=== PATIENT | female | born 1940 | race Caucasian/White ===

== ENCOUNTER 2016-02-25 09:19 | Day surgery (SDC) | payer OTHER ==
[2016-02-25] MEDS ORDERED: DIAZEPAM 5 MG TAB PO ONE (09:24)
[2016-02-25] MEDS ORDERED: FAMOTIDINE 20 MG TAB PO ONE (09:24)
[2016-02-25] MEDS ORDERED: diphenhydrAMINE 25 MG CAP PO ONE ×2 (09:24→09:54)
[2016-02-25] MEDS ORDERED: NS 1,000 ML IV ONE (09:24)
[2016-02-25] MEDS ORDERED: ASPIRIN EC 325 MG TAB PO ONE ×2 (09:24→09:54)
--- NOTE | 2016-02-25 09:49 | CPEKG ---
Heart Rate: 50 RR Interval: 1200 P-R Interval: 144 QRSD Interval: 84 QT Interval: 456 QTC Interval: 416 P Providence: 61 QRS Providence: -15 T Wave Providence: 135 EKG Severity - ABNORMAL ECG - EKG Impression: SINUS RHYTHM EKG Impression: PROBABLE LVH WITH SECONDARY REPOL ABNRM Electronically Signed By: Nav Norwood 25-Feb-2016 15:47:40
[2016-02-25] MEDS ORDERED: DIAZEPAM 5 MG TAB ONE (09:54)
[2016-02-25] MEDS ORDERED: FAMOTIDINE 20 MG TAB ONE (09:54)
[2016-02-25 10:05] LABS: % IMMATURE GRANULYOCYTES 0.2 % (0.0-1.1); ABSOLUTE IMMATURE GRANULOCYTES 0.01 10^3/uL (0.00-0.10); ADD DIFF? NO; ADD MORPH? NO; ADD SCAN? NO; ATYPICAL LYMPHOCYTE FLAG 10 (0-99); FRAGMENT RBC FLAG 0 (0-99); HEMATOCRIT 37.8 % (38.0-47.0); HEMOGLOBIN 13.7 g/dL (12.6-16.3); LEFT SHIFT FLG 20 (0-99); LIPEMIA HEMOLYSIS FLAG 90 (0-99); MEAN CELL HEMOGLOBIN 31.2 pg (27.9-34.1); MEAN CELL HEMOGLOBIN CONCENTR. 36.2 g/dL (32.4-36.7); MEAN CELL VOLUME 86.1 fL (81.5-99.8); MEAN PLATELET VOLUME 8.8 fL (8.7-11.7); PLATELET CLUMPS FLAG 10 (0-99); PLATELET COUNT 284 10^3/uL (150-400); RED BLOOD CELL COUNT 4.39 10^6/uL (4.18-5.33); RED CELL DISTRIBUTION WIDTH 12.7 % (11.5-15.2)
[2016-02-25 10:17] LABS: INR 0.97 (0.83-1.16); PROTIME(PATIENT) 12.8 SEC (12.0-15.0)
[2016-02-25] MEDS ORDERED: fentaNYL 100 MCG/2 ML INJ ONE (10:34)
[2016-02-25] MEDS ORDERED: MIDAZOLAM 2 MG/2 ML VIAL ONE (10:34)
[2016-02-25] MEDS ORDERED: LIDOCAINE 1% 30 ML SDV ONE (10:34)
[2016-02-25] MEDS ORDERED: IOPAMIDOL (ISOVUE-370) 150 ML BTL IV ONE (10:35)
[2016-02-25 10:36] LABS: ANION GAP 13 mEq/L (8-16); CARBON DIOXIDE 24 mEq/l (22-31); CHLORIDE 106 mEq/L (97-110); CHOLESTEROL 263 mg/dL (140-220); CHOLESTEROL/HDL RATIO 4.38 RATIO (1.00-4.44); CREATININE 0.8 mg/dL (0.6-1.0); GLOMERULAR FILTRATION RATE > 60; GLUCOSE 108 mg/dL (70-100); HIGH DENSITY LIPOPROTEIN 60 mg/dL (40-85); LDL/HDL RATIO 2.92 RATIO (1.00-3.22); LOW DENSITY LIPOPROTEIN 175 mg/dL (80-100); MAGNESIUM 1.8 mg/dL (1.6-2.3); NON-HIGH DENSITY LIPOPROTEIN 203 mg/dL (90-129); POTASSIUM 4.1 mEq/L (3.5-5.2); SODIUM 143 mEq/L (134-144); TRIGLYCERIDE 142 mg/dL (35-135); VERY LOW DENSITY LIPOPROTEINS 28 mg/dL (8-25)
--- NOTE | 2016-02-25 12:30 | PDDXCAT ---
Diagnostic Cath Note - . Date: 02/25/16 Field Technical Support Consultant: Richard Indication: other (Aortic valve stenosis and CAD with a history of PCI of the LAD) - Procedure Access: right groin Procedure: left heart catheterization, coronary angiography, left ventriculogram , right heart catheterization - Materials Left Heart Cath size: 6F Right Heart Cath size: 7F (7 Fr sheath in RFV but used 6Fr JR4 for RHC due to Latex allergy; therefore, no PAOP recorded.) - Findings-Left Heart Catheterization LM: Distal 20 to 30%. LAD: Prior stent in mid-LAD patent; o/w diffuse mild to moderate irregularities. LCX: Ostial 50%; first OM 60% proximal. RCA: Proximal 50%; ostial PDA 80 to 90%. Ramus: Proximal 70%. EDP: 220/28 mmHg LVEF: 70% Wall motion: Normal. - Findings-Right Heart Catheterization RA: 12 mmHg RV: 56/14 mmHg PA: 50/12/30 mmHg O2 sat 71.4% PAOP: Not recorded. AO: 168/82/152 mmHg O2 sat 92.7% CO: 5.04 L/min; aortic valve mean gradient 28.4 mmHg; aortic valve area 1.16 sq cm CI: 3.15 L/min/sq mtr Complications: None Estimated blood loss: <50ml Closure method: Angioseal Assessment: 1) Normal LV systolic function. 2) Moderate to severe aortic stenosis. 3) Coronary artery disease as described above. 4) Mild to moderate pulmonary hypertension.
[2016-02-25] MEDS ORDERED: amLODIPine BESYLATE 5 MG TAB ONE (12:32)
[2016-02-25] MEDS ORDERED: amLODIPine BESYLATE 5 MG TAB PO ONE (13:00)
[2016-02-25] MEDS ORDERED: hydrALAZINE 20 MG/ML VIAL IVP ONE (14:30)
[2016-02-25] MEDS ORDERED: ATROPINE SULFATE 1 MG/10 ML SYR ONE (14:38)
== END 2016-02-25 18:31 | disposition home or self-care (01) ==
LOC: FCATH 09:19
PROVIDERS: ATTEND Internal Medicine Interventional Cardiology
PROC: B2151ZZ Fluoroscopy of Left Heart using Low Osmolar Contrast (ICD-10-PCS; principal; 2016-02-25)
PROC: 4A023N8 Measurement of Cardiac Sampling and Pressure, Bilateral, Percutaneous Approach (ICD-10-PCS; principal; 2016-02-25)
PROC: B2111ZZ Fluoroscopy of Multiple Coronary Arteries using Low Osmolar Contrast (ICD-10-PCS; principal; 2016-02-25)
DX: I35.0 Nonrheumatic aortic (valve) stenosis (principal); I25.10 Atherosclerotic heart disease of native coronary artery without angina pectoris; E78.5 Hyperlipidemia, unspecified; Z95.5 Presence of coronary angioplasty implant and graft
CPT/HCPCS: C1760; J0360; J0461; J1644; J2250; J3010; Q9967

== ENCOUNTER 2016-04-05 23:19 | Emergency (ER) | payer OTHER ==
[2016-04-05 23:33] VITALS: TEMP 97.9; O2SAT 94
[2016-04-06] MEDS ORDERED: ACETAMINOPHEN 325 MG TAB PO ONE (00:44)
[2016-04-06] MEDS ORDERED: NS 500 ML IV ONE (00:54)
[2016-04-06 01:09] LABS: % IMMATURE GRANULYOCYTES 0.2 % (0.0-1.1); ABSOLUTE IMMATURE GRANULOCYTES 0.01 10^3/uL (0.00-0.10); ADD DIFF? NO; ADD MORPH? NO; ADD SCAN? NO; ATYPICAL LYMPHOCYTE FLAG 0 (0-99); FRAGMENT RBC FLAG 0 (0-99); HEMOGLOBIN 12.8 g/dL (12.6-16.3); LEFT SHIFT FLG 0 (0-99); LIPEMIA HEMOLYSIS FLAG 90 (0-99); MEAN CELL HEMOGLOBIN 30.6 pg (27.9-34.1); MEAN CELL HEMOGLOBIN CONCENTR. 34.6 g/dL (32.4-36.7); MEAN CELL VOLUME 88.5 fL (81.5-99.8); MEAN PLATELET VOLUME 9.1 fL (8.7-11.7); PLATELET CLUMPS FLAG 0 (0-99); PLATELET COUNT 247 10^3/uL (150-400); RED BLOOD CELL COUNT 4.18 10^6/uL (4.18-5.33); RED CELL DISTRIBUTION WIDTH 12.9 % (11.5-15.2)
[2016-04-06 01:16] LABS: PROTIME(PATIENT) 13.1 SEC (12.0-15.0)
[2016-04-06 01:24] LABS: SEDIMENTATION RATE 11 MM/HR (0-30)
--- NOTE | 2016-04-06 01:31 | EDPHY ---
General - History Smoking Status: Former smoker Narrative: CHIEF COMPLAINT: headache HISTORY OF PRESENT ILLNESS: headache that started yesterday around 3:30 p.m. This was approximately 1 hour after taking supplements that she was prescribed by a Eastern medicine physician due to aortic stenosis. She has no chest pain of any kind at this time, but did have a diagnosis of aortic stenosis within the past month. She notes a sudden onset of a left-sided, parietal/temporal parietal pain. It is point tenderness. It is not diffuse. It has no exacerbating or alleviating factors. It has been constant since onset. No nausea or vomiting. No unilateral weakness. No confusion or slurred speech. No dizziness. No other associated complaints or particular modifying factors for this. The specific supplements are at bedside. No previous history of headache. No history of coagulopathy or use of blood thinners. REVIEW OF SYSTEMS: Ten systems reviewed and are negative unless otherwise noted in the HPI EXAMINATION General Appearance: Alert, no distress Head: normocephalic, atraumatic . No contusions or outward signs of trauma. No Saxena sign. No raccoon eyes. No depression or hematoma Eyes: Pupils equal and round, no conjunctival pallor or injection . EOMs intact. No subconjunctival hemorrhage or hyphema ENT, Mouth: Mucous membranes moist. Uvula midline. No erythema or edema. Neck: Normal inspection, supple, non-tender. Painless range of motion in all planes. No meningismus Respiratory: Lungs are clear to auscultation. No wheezing, rhonchi or crackles. Cardiovascular: Regular rate and rhythm . No murmur. Pulses intact distally with symmetric radial pulses 2+ symmetric DP pulses 2+. Gastrointestinal: Abdomen is soft and nontender Back: non-tender, no bony abnormalities Neurological: A&O X4. Cranial nerves 2-12 grossly intact. Strength is symmetric in all limbs of 5/5. No dysmetria. No pronator drift. NIH stroke scale is 0. Skin: Warm and dry, no rash Extremities: Nontender, no pedal edema Psychiatric: Mood and affect normal DIFFERENTIAL DIAGNOSES: Including but not limited to cephalgia, adverse drug reaction, intracranial hemorrhage, intraparenchymal hemorrhage, vascular headache, migraine MDM: 12:50 a.m. headache of nearly 18 hours duration. The pain is focal and localized to the left parietal/ temporal parietal region. There is no diffuse headache. There is no meningismus. No fever or chills. No signs or symptoms of stroke. CT scan has been ordered due to a severe headache. Laboratory studies are pending at this time. She is in no acute distress with a fully normal neuro examination 2:[address] Gordillo that the CT scan is within normal limits. specifically there are no acute findings including no evidence of subdural, subarachnoid or epidural hematoma. 2:05 a.m. I have re-evaluated the patient. She is feeling somewhat better after the Tylenol. I informed her of the CT scan findings. Also informed her of her laboratory studies thus far. Discussed with her a lumbar puncture to further evaluate her headache, specifically to rule out subdural hematoma. The patient was informed of the procedure and has declined. She says that she prefers not to do that. She is informed of the risks and benefits and comfortable with Assuming this risk. We will administer pain medication and monitor. 2:30 a.m. she is feeling significantly better at this time on re-evaluation. She remains awake and alert and neuro intact. Still does not want to do the lumbar puncture. She would like to be discharged home and is requesting pain medication should she need it. Will give her a small, a low dose of Shelbiana to go home with and instructions to return to the emergency department if her pain worsens, she has any vomiting, any unilateral weakness or stroke-like symptoms. recommend that she no longer takes supplements that she was taking when the headache started. Follow up with primary care physician otherwise. Patient is comfortable with this plan and wants to be discharged home SUPERVISION: Patient was evaluated in conjunction with the supervising physician. Please see their note for details. (Nikunj Albright) ED PA DICTATION I evaluated and participated in the management of the patient. I also evaluated the patient independently. My co-signature indicates that I have reviewed this chart and I agree with the findings and plan of care as documented. My personal H&P findings include: This is a 75-year-old female with hypertension who presents with headache, different from previous. She has a nonfocal neurologic exam. Labs are unremarkable. She is quite hypertensive initially. CT scan is unremarkable. She was offered an LP, however declined. She improved with pain medication here. She will be discharged home. (Beatris Montgomery) - Objective Vital Signs: Initial Vital Signs Temperature (C) 36.6 C 04/05/16 23:29 Heart Rate 57 L 04/05/16 23:29 Respiratory Rate 20 04/05/16 23:29 Blood Pressure 250/110 H 04/05/16 23:29 O2 Sat (%) 94 04/05/16 23:29 O2 Delivery Mode Room Air Allergies/Adverse Reactions: Cephalosporins Allergy (Verified 04/05/16 23:29) latex Allergy (Verified 04/05/16 23:29) Home Medications: Medication Instructions Recorded Chlorthalidone [Chlorthalidone 25 12.5 mg PO DAILY 02/25/16 mg (*)] Cholecalciferol Vit D3 [Vitamin D3 2,000 units PO DAILY 02/25/16 2000 units tab (OTC)] Compounded Biestrogen 1 each PO DAILY 02/25/16 Compounded Progesterone 150mg 1 each PO HS 02/25/16 Herbals/Supplements -Info Only 1 ea PO DAILY 02/25/16 Labetalol HCl [Trandate 100 mg (*)] 50 mg PO HS 02/25/16 Lisinopril [Zestril 20 mg (*)] 20 mg PO DAILY 02/25/16 Maynard-3 Fatty Acids [Fish Oil 1000 1,000 mg PO DAILY 02/25/16 mg (*)] Laboratory Results: Laboratory Results 04/06/16 01:01 04/06/16 01:01 04/06/16 04/06/16 04/06/16 01:01 01:01 01:01 WBC 6.63 10^3/uL 10^3/uL (3.80-9.50) RBC 4.18 10^6/uL 10^6/uL (4.18-5.33) Hgb 12.8 g/dL g/dL (12.6-16.3) Hct 37.0 % L % (38.0-47.0) MCV 88.5 fL fL (81.5-99.8) MCH 30.6 pg pg (27.9-34.1) MCHC 34.6 g/dL g/dL (32.4-36.7) RDW 12.9 % % (11.5-15.2) Plt Count 247 10^3/uL 10^3/uL (150-400) MPV 9.1 fL fL (8.7-11.7) Neut % (Auto) 55.0 % % (39.3-74.2) Lymph % (Auto) 32.4 % % (15.0-45.0) Garvin % (Auto) 11.6 % % (4.5-13.0) Eos % (Auto) 0.0 % L % (0.6-7.6) Baso % (Auto) 0.8 % % (0.3-1.7) Nucleat RBC Rel Count 0.0 % % (0.0-0.2) Absolute Neuts (auto) 3.65 10^3/uL 10^3/uL (1.70-6.50) Absolute Lymphs (auto) 2.15 10^3/uL 10^3/uL (1.00-3.00) Absolute Monos (auto) 0.77 10^3/uL 10^3/uL (0.30-0.80) Absolute Eos (auto) 0.00 10^3/uL L 10^3/uL (0.03-0.40) Absolute Basos (auto) 0.05 10^3/uL 10^3/uL (0.02-0.10) Absolute Nucleated RBC 0.00 10^3/uL 10^3/uL (0-0.01) Immature Gran % 0.2 % % (0.0-1.1) Immature Gran # 0.01 10^3/uL 10^3/uL (0.00-0.10) ESR 11 MM/HR MM/HR (0-30) PT 13.1 SEC SEC (12.0-15.0) INR 1.00 (0.83-1.16) Sodium 141 mEq/L mEq/L (134-144) Potassium 3.9 mEq/L mEq/L (3.5-5.2) Chloride 108 mEq/L mEq/L (97-110) Carbon Dioxide 23 mEq/l mEq/l (22-31) Anion Gap 10 mEq/L mEq/L (8-16) BUN 20 mg/dL mg/dL (7-23) Creatinine 0.9 mg/dL mg/dL (0.6-1.0) Estimated GFR > 60 Glucose 116 mg/dL H mg/dL (70-100) Calcium 10.1 mg/dL mg/dL (8.5-10.4) C-Reactive Protein < 5.0 mg/L mg/L (<10.0) Medications Given: Discontinued Medications Acetaminophen (Tylenol) 650 mg PO EDNOW ONE Stop: 04/06/16 00:45 Last Admin: 04/06/16 01:07 Dose: 650 mg Acetaminophen/Hydrocodone Bitart (Shelbiana 5/325mg Prepack#6) 1 btl TAKEHOME EDNOW ONE Stop: 04/06/16 02:36 Last Admin: 04/06/16 03:09 Dose: 1 btl Sodium Chloride (Ns) 500 mls @ 0 mls/hr IV ONCE ONE PRN Reason: Wide Open Stop: 04/06/16 00:55 Last Admin: 04/06/16 01:07 Dose: 500 mls Morphine Sulfate (Morphine) 4 mg IVP EDNOW ONE Stop: 04/06/16 02:07 Last Admin: 04/06/16 02:24 Dose: 2 mg Ondansetron HCl (Zofran) 4 mg IVP EDNOW ONE Stop: 04/06/16 02:07 Last Admin: 04/06/16 02:24 Dose: 4 mg Departure - Departure Disposition: Home, Routine, Self-Care Clinical Impression: Cephalgia Qualifiers: Headache type: unspecified Headache chronicity pattern: acute headache Intractability: not intractable Qualified Code(s): R51 - Headache Condition: Good Instructions: Hydrocodone/Acetaminophen (By mouth), Acute Headache (ED) Additional Instructions: follow-up with primary care physician. Return to the ER for precautions as discussed Referrals: Satnam Armstrong, [Primary Care Provider] - As per Instructions
[2016-04-06 01:33] LABS: ANION GAP 10 mEq/L (8-16); C-REACTIVE PROTEIN < 5.0 mg/L (<10.0); CALCIUM 10.1 mg/dL (8.5-10.4); CARBON DIOXIDE 23 mEq/l (22-31); CHLORIDE 108 mEq/L (97-110); CREATININE 0.9 mg/dL (0.6-1.0); GLOMERULAR FILTRATION RATE > 60; GLUCOSE 116 mg/dL (70-100); POTASSIUM 3.9 mEq/L (3.5-5.2); SODIUM 141 mEq/L (134-144)
--- NOTE | 2016-04-06 01:51 | EDPHY ---
H & P Stated Complaint: left sided headache - Personal History Tetanus Vaccine Date: < 10 years - Medical/Surgical History Hx Asthma: No Hx Chronic Respiratory Disease: No Hx Diabetes: No Hx Cardiac Disease: Yes Hx Renal Disease: No Hx Cirrhosis: No Hx Alcoholism: No Hx HIV/AIDS: No Hx Splenectomy or Spleen Trauma: No Other PMH: bilateral hip replacements, D and C, heart stents,. aortic stenosis, - Social History Smoking Status: Former smoker Constitutional: Initial Vital Signs Temperature (C) 36.6 C 04/05/16 23:29 Heart Rate 57 L 04/05/16 23:29 Respiratory Rate 20 04/05/16 23:29 Blood Pressure 250/110 H 04/05/16 23:29 O2 Sat (%) 94 04/05/16 23:29 O2 Delivery Mode Room Air Allergies/Adverse Reactions: Cephalosporins Allergy (Verified 04/05/16 23:29) latex Allergy (Verified 04/05/16 23:29) Home Medications: Medication Instructions Recorded Chlorthalidone [Chlorthalidone 25 12.5 mg PO DAILY 02/25/16 mg (*)] Cholecalciferol Vit D3 [Vitamin D3 2,000 units PO DAILY 02/25/16 2000 units tab (OTC)] Compounded Biestrogen 1 each PO DAILY 02/25/16 Compounded Progesterone 150mg 1 each PO HS 02/25/16 Herbals/Supplements -Info Only 1 ea PO DAILY 02/25/16 Labetalol HCl [Trandate 100 mg (*)] 50 mg PO HS 02/25/16 Lisinopril [Zestril 20 mg (*)] 20 mg PO DAILY 02/25/16 Mobile-3 Fatty Acids [Fish Oil 1000 1,000 mg PO DAILY 02/25/16 mg (*)] Departure - Departure Referrals: Satnam Armstrong, [Primary Care Provider] - As per Instructions
[2016-04-06] MEDS ORDERED: ONDANSETRON 4 MG/2 ML VIAL IVP ONE (02:06)
[2016-04-06] MEDS ORDERED: HYDROCOD/APAP 5/325 PREPACK#6 BTL TAKEHOME ONE (02:35)
[2016-04-06 03:21] VITALS: BP 150/90; PULSE 70; RESP 16
== END 2016-04-06 03:20 | disposition home or self-care (01) ==
DX: R51 Headache (principal); Z91.040 Latex allergy status
CPT/HCPCS: 70450; 96374; 96375; 99285; J2405

== ENCOUNTER 2016-04-08 11:05 | Emergency (ER) | payer OTHER ==
[2016-04-08] MEDS ORDERED: NS 500 ML IV ONE (11:25)
[2016-04-08] MEDS ORDERED: ONDANSETRON 4 MG/2 ML VIAL IVP ONE (11:25)
[2016-04-08] MEDS ORDERED: KETOROLAC 30 MG/1 ML SDV IVP ONE (12:10)
--- NOTE | 2016-04-08 12:13 | EDPHY ---
H & P Stated Complaint: HERE 04/05 W/ SAME C/O Time Seen by Provider: 04/08/16 11:23 HPI/ROS: CHIEF COMPLAINT: Persistent left temporal headache HISTORY OF PRESENT ILLNESS: Patient presents to the ED for evaluation of ongoing persistent left temporal headache. The patient was seen in the emergency department 2 days ago and had an unremarkable head CT scan and normal sed rate noted. The patient denies any acute neurologic symptoms. She complains of a sharp intermittent left-sided temporal headache. She is having some dysesthesia in her scalp but no rash. The patient denies any history of fall or direct trauma. She continues to deny any peripheral complaints of numbness or weakness. REVIEW OF SYSTEMS: A comprehensive 10 point review of systems is otherwise negative aside from elements mentioned in the history of present illness. Source: Patient Exam Limitations: No limitations - Personal History Current Tetanus/Diphtheria Vaccine: Yes Current Tetanus Diphtheria and Acellular Pertussis (TDAP): Yes Tetanus Vaccine Date: < 10 years - Medical/Surgical History Hx Asthma: No Hx Chronic Respiratory Disease: No Hx Diabetes: No Hx Cardiac Disease: Yes Hx Renal Disease: No Hx Cirrhosis: No Hx Alcoholism: No Hx HIV/AIDS: No Hx Splenectomy or Spleen Trauma: No Other PMH: bilateral hip replacements, D and C, heart stents,. aortic stenosis, - Social History Smoking Status: Former smoker - Physical Exam Exam: General Appearance: Alert, no distress Eyes: Pupils equal and round no pallor or injection ENT, Mouth: Mucous membranes moist Respiratory: There are no retractions, lungs are clear to auscultation Cardiovascular: Regular rate and rhythm Gastrointestinal: Abdomen is soft and nontender, no masses, bowel sounds normal Neurological: A&O, normal motor function, normal sensory exam, normal cranial nerves Skin: Warm and dry, no rashes Musculoskeletal: Neck is supple nontender Extremities: symmetrical, full range of motion Constitutional: Initial Vital Signs Temperature (C) 36.5 C 04/08/16 11:06 Heart Rate 58 L 04/08/16 11:06 Respiratory Rate 12 04/08/16 11:06 Blood Pressure 140/100 H 04/08/16 11:06 O2 Sat (%) 94 04/08/16 11:06 O2 Delivery Mode Room Air Allergies/Adverse Reactions: Cephalosporins Allergy (Verified 04/05/16 23:29) latex Allergy (Verified 04/05/16 23:29) Home Medications: Medication Instructions Recorded Chlorthalidone [Chlorthalidone 25 12.5 mg PO DAILY 02/25/16 mg (*)] Cholecalciferol Vit D3 [Vitamin D3 2,000 units PO DAILY 02/25/16 2000 units tab (OTC)] Compounded Biestrogen 1 each PO DAILY 02/25/16 Compounded Progesterone 150mg 1 each PO HS 02/25/16 Herbals/Supplements -Info Only 1 ea PO DAILY 02/25/16 Labetalol HCl [Trandate 100 mg (*)] 50 mg PO HS 02/25/16 Lisinopril [Zestril 20 mg (*)] 20 mg PO DAILY 02/25/16 Lefor-3 Fatty Acids [Fish Oil 1000 1,000 mg PO DAILY 02/25/16 mg (*)] Medical Decision Making ED Course/Re-evaluation: I reviewed the patient's past medical records including her imaging studies and laboratory workup from 2 days ago. The patient had an IV established. She received IV Toradol and Zofran. The patient has no evidence of an obvious herpetic rash. The patient did receive serial examinations by myself. At 1:30 p.m. she reports her headache has markedly improved. She currently rates it as a 2/10. He continues to be over her left adventist area. The patient continues to have a normal neurologic examination. At this point time I do feel that she can take NSAIDs for her headache and see if her symptoms progress. She has been instructed to return to the ED for acute neurologic symptoms, worsening headache, fever or other concerns. - Data Points Medications Given: Discontinued Medications Sodium Chloride (Ns) 500 mls @ 0 mls/hr IV ONCE ONE PRN Reason: Wide Open Stop: 04/08/16 11:26 Last Admin: 04/08/16 11:35 Dose: 500 mls Ketorolac Tromethamine (Toradol) 30 mg IVP EDNOW ONE Stop: 04/08/16 12:11 Last Admin: 04/08/16 12:24 Dose: 30 mg Ondansetron HCl (Zofran) 4 mg IVP EDNOW ONE Stop: 04/08/16 11:26 Last Admin: 04/08/16 11:35 Dose: 4 mg Departure - Departure Disposition: Home, Routine, Self-Care Clinical Impression: Headache Condition: Good Instructions: Acute Headache (ED) Additional Instructions: 1. Take Ibuprofen or Motrin 600 mg by mouth three times a day. 2. Please return to the ED for any numbness, weakness, difficulty speaking or other concerns. 3. Please follow up with neurologist you have been referred to for any ongoing symptoms. 4. Please follow up with your primary care provider as scheduled. Referrals: Satnam Armstrong, [Primary Care Provider] - As per Instructions
[2016-04-08 14:15] VITALS: BP 145/85; PULSE 81; RESP 15; TEMP 98.1; O2SAT 96
== END 2016-04-08 14:14 | disposition home or self-care (01) ==
DX: R51 Headache (principal); Z87.891 Personal history of nicotine dependence; Z95.5 Presence of coronary angioplasty implant and graft; Z91.040 Latex allergy status
CPT/HCPCS: 96361; 96374; 96375; 99284; J1885; J2405

== ENCOUNTER → 2016-11-10 | Outpatient (CLI) | payer OTHER | LOC: BMCIMAGING 14:13 | PROVIDERS: ATTEND Podiatrist Foot & Ankle Surgery | DX: M25.571 Pain in right ankle and joints of right foot (principal) ==

== ENCOUNTER → 2017-08-25 | Outpatient (CLI) | payer OTHER | LOC: FIMAGING 14:34 | PROVIDERS: ATTEND Family Medicine | DX: I25.10 Atherosclerotic heart disease of native coronary artery without angina pectoris (principal); I10 Essential (primary) hypertension; I35.0 Nonrheumatic aortic (valve) stenosis; R09.89 Other specified symptoms and signs involving the circulatory and respiratory systems ==

== ENCOUNTER 2017-11-10 23:26 | Emergency (ER) | payer OTHER ==
[2017-11-11 00:51] LABS: PLATELET COUNT 300 10^3/uL (150-400)
[2017-11-11 01:01] VITALS: BP 160/74
--- NOTE | 2017-11-11 01:27 | EDPHY ---
H & P Stated Complaint: palpatations recent tavr Time Seen by Provider: 11/10/17 23:43 HPI/ROS: HPI The patient presents with palpitations which began while drinking herbal tea and after eating some toast tonight. The palpitations lasted for about 1 hr and have now improved on her drive here. These were associated with a feeling of lightheadedness. They were fairly constant. The patient has a history of TAVR at [facility] on November 04. She also had a cardiac catheterization with a stent placed on November 02. She denies any chest pain or shortness of breath and says that her recovery has been mostly unremarkable. She has an appointment with her pig machine crane operator Dr. rOtiz. She has not had any other palpitations postoperatively. REVIEW OF SYSTEMS 10 systems were reviewed and negative with the exception of the elements mentioned in the history of present illness. PMHx: Severe aortic stenosis with TAVR 11/04; angio with stent placed 11/02 Soc Hx: Here with her PHYSICAL General Appearance: Alert, no distress Eyes: Pupils equal and round no pallor or injection ENT, Mouth: Mucous membranes moist Respiratory: There are no retractions, lungs are clear to auscultation Cardiovascular: Regular rate and rhythm Gastrointestinal: Abdomen is soft and non-tender, no masses, bowel sounds normal Neurological: A&O, moves all extremities Skin: Warm and dry, ecchymoses throughout her upper extremities, chest wall Musculoskeletal: Neck is supple non tender Extremities: symmetrical, full range of motion Psychiatric: Patient is oriented X 3, there is no agitation Source: Patient Exam Limitations: No limitations - Personal History Current Tetanus/Diphtheria Vaccine: Unsure Current Tetanus Diphtheria and Acellular Pertussis (TDAP): Unsure Tetanus Vaccine Date: < 10 years - Medical/Surgical History Hx Asthma: No Hx Chronic Respiratory Disease: No Hx Diabetes: No Hx Cardiac Disease: Yes Hx Renal Disease: No Hx Cirrhosis: No Hx Alcoholism: No Hx HIV/AIDS: No Hx Splenectomy or Spleen Trauma: No Other PMH: bilateral hip replacements, D and C, heart stents,. aortic stenosis, tavr - Social History Smoking Status: Former smoker Constitutional: Initial Vital Signs Temperature (C) 36.5 C 11/10/17 23:32 Heart Rate 62 11/10/17 23:32 Respiratory Rate 18 11/10/17 23:32 Blood Pressure 159/99 H 09/25/18 23:32 O2 Sat (%) 96 11/10/17 23:32 O2 Delivery Mode Room Air Allergies/Adverse Reactions: Cephalosporins Allergy (Verified 04/05/16 23:29) latex Allergy (Verified 04/05/16 23:29) losartan Allergy (Verified 11/10/17 23:30) Home Medications: Medication Instructions Recorded Chlorthalidone [Chlorthalidone 25 12.5 mg PO DAILY 02/25/16 mg (*)] Cholecalciferol Vit D3 [Vitamin D3 2,000 units PO DAILY 02/25/16 2000 units tab (OTC)] Compounded Biestrogen 1 each PO DAILY 02/25/16 Compounded Progesterone 150mg 1 each PO HS 02/25/16 Herbals/Supplements -Info Only 1 ea PO DAILY 02/25/16 Labetalol HCl [Trandate 100 mg (*)] 50 mg PO HS 02/25/16 [place]-3 Fatty Acids [Fish Oil 1000 1,000 mg PO DAILY 02/25/16 mg (*)] Medical Decision Making - Diagnostics EKG Interpretation: EKG: Complete interpretation has been separately recorded in the [facility] archive. Summary impression: Right bundle-branch block, interpreted by me Imaging Results: Chest x-ray shows no cardiomegaly, no pleural effusion, no infiltrate, interpreted by me, radiology interpretation is pending. Imaging: I viewed and interpreted images myself Differential Diagnosis: This is a 77-year-old female with history of aortic stenosis and CAD she is recently status post TAVR and cardiac catheterization who now presents with an episode of palpitations lasting for about 1 hr at rest without any associated features now resolved. Here, she is slightly hypertensive. EKG shows right bundle branch block. Labs show elevated D-dimer with normal chest x-ray. I have recommended CT scan angio of her chest to evaluate for pulmonary embolism. However, she declines this test. She says she has had lots of radiation and CT scans recently and would like to avoid this. I explained to her that without this test I cannot rule out pulmonary embolism which could be a fatal diagnosis. She says she would like to go home. I have offered her admission for observation only. She still declines this. She says she has been in the hospital lot lately and would like to be at home. She accepts the risks of going which include . She would like to follow up with her pig machine crane operator tomorrow. Differential diagnosis includes atrial fibrillation, pulmonary embolism, cardiac arrhythmia. - Data Points Laboratory Results: Laboratory Results 11/10/17 23:51 11/10/17 23:51 11/11/17 11/10/17 11/10/17 00:04 23:55 23:51 WBC RBC Hgb POC Hgb 10.9 gm/dL L gm/dL (12.6-16.3) Hct POC Hct 32 % L % (38-47) MCV MCH MCHC RDW Plt Count MPV Neut % (Auto) Lymph % (Auto) [place] % (Auto) Eos % (Auto) Baso % (Auto) Nucleat RBC Rel Count Absolute Neuts (auto) Absolute Lymphs (auto) Absolute Monos (auto) Absolute Eos (auto) Absolute Basos (auto) Absolute Nucleated RBC Immature Gran % Immature Gran # D-Dimer POC Sodium 139 mEq/L mEq/L (135-145) Sodium 140 mEq/L mEq/L (135-145) POC Potassium 2.9 mEq/L L mEq/L (3.3-5.0) Potassium 3.2 mEq/L L mEq/L (3.3-5.0) POC Chloride 102 mEq/L mEq/L (97-110) Chloride 105 mEq/L mEq/L (97-110) Carbon Dioxide 22 mEq/l mEq/l (22-31) Anion Gap 13 mEq/L mEq/L (8-16) POC BUN 17 mg/dL mg/dL (7-23) BUN 19 mg/dL mg/dL (7-23) Creatinine 0.7 mg/dL mg/dL (0.6-1.0) POC Creatinine 0.7 mg/dL mg/dL (0.6-1.0) Estimated GFR > 60 Glucose 177 mg/dL H mg/dL (70-100) POC Glucose 183 mg/dL H mg/dL (70-100) Calcium 10.2 mg/dL mg/dL (8.5-10.4) POC Troponin I 0.06 ng/mL ng/mL (0.00-0.08) NT-Pro-B Natriuret Pep 986 pg/mL H pg/mL (0-450) 11/10/17 11/10/17 23:51 23:51 WBC 7.09 10^3/uL 10^3/uL (3.80-9.50) RBC 3.55 10^6/uL L 10^6/uL (4.18-5.33) Hgb 10.9 g/dL L g/dL (12.6-16.3) POC Hgb Hct 30.7 % L % (38.0-47.0) POC Hct MCV 86.5 fL fL (81.5-99.8) MCH 30.7 pg pg (27.9-34.1) MCHC 35.5 g/dL g/dL (32.4-36.7) RDW 12.8 % % (11.5-15.2) Plt Count 300 10^3/uL 10^3/uL (150-400) MPV 9.2 fL fL (8.7-11.7) Neut % (Auto) 67.0 % % (39.3-74.2) Lymph % (Auto) 20.5 % % (15.0-45.0) [place] % (Auto) 11.3 % % (4.5-13.0) Eos % (Auto) 0.0 % L % (0.6-7.6) Baso % (Auto) 0.6 % % (0.3-1.7) Nucleat RBC Rel Count 0.0 % % (0.0-0.2) Absolute Neuts (auto) 4.76 10^3/uL 10^3/uL (1.70-6.50) Absolute Lymphs (auto) 1.45 10^3/uL 10^3/uL (1.00-3.00) Absolute Monos (auto) 0.80 10^3/uL 10^3/uL (0.30-0.80) Absolute Eos (auto) 0.00 10^3/uL L 10^3/uL (0.03-0.40) Absolute Basos (auto) 0.04 10^3/uL 10^3/uL (0.02-0.10) Absolute Nucleated RBC 0.00 10^3/uL 10^3/uL (0-0.01) Immature Gran % 0.6 % % (0.0-1.1) Immature Gran # 0.04 10^3/uL 10^3/uL (0.00-0.10) D-Dimer 1.31 ug/mLFEU H ug/mLFEU (0.00-0.50) POC Sodium Sodium POC Potassium Potassium POC Chloride Chloride Carbon Dioxide Anion Gap POC BUN BUN Creatinine POC Creatinine Estimated GFR Glucose POC Glucose Calcium POC Troponin I NT-Pro-B Natriuret Pep Point of Care Test Results: Chemistry 11/11/17 11/10/17 00:04 23:55 POC Sodium 139 mEq/L mEq/L (135-145) POC Potassium 2.9 mEq/L L mEq/L (3.3-5.0) POC Chloride 102 mEq/L mEq/L (97-110) POC BUN 17 mg/dL mg/dL (7-23) POC Creatinine 0.7 mg/dL mg/dL (0.6-1.0) POC Glucose 183 mg/dL H mg/dL (70-100) POC Troponin I 0.06 ng/mL ng/mL (0.00-0.08) ISTAT H&H 11/10/17 23:55 POC Hgb 10.9 gm/dL L gm/dL (12.6-16.3) POC Hct 32 % L % (38-47) Departure - Departure Disposition: Home, Routine, Self-Care Clinical Impression: Palpitations, S/P TAVR (transcatheter aortic valve replacement), CAD (coronary artery disease) Condition: Good Instructions: Heart Palpitations (ED) Additional Instructions: The cause of your palpitations is not clear. I recommended you be admitted to the hospital, however you would like to go home. At this time we cannot rule out serious causes of your palpitations and because of this if you would like to be admitted or having any worsening symptoms I strongly encourage you to return to the emergency department. Please follow-up with your pig machine crane operator tomorrow as planned. Referrals: Satnam Armstrong, [Primary Care Provider] - As per Instructions
--- NOTE | 2017-11-11 07:37 | CPEKG ---
Test Reason : OPEN Blood Pressure : / mmHG Vent. Rate : 061 BPM Atrial Rate : 063 BPM P-R Int : 063 ms QRS Dur : 152 ms QT Int : 477 ms P-R-T Axes : 083 -56 -15 degrees QTc Int : 481 ms Sinus rhythm Short PA interval RBBB and LAFB Probable left ventricular hypertrophy Confirmed by Beatris Montgomery ([id number]) on 11/11/2017 7:37:04 AM Referred By: Confirmed By:Beatris Montgomery
== END 2017-11-11 01:40 | disposition home or self-care (01) ==
DX: R00.2 Palpitations (principal); I25.10 Atherosclerotic heart disease of native coronary artery without angina pectoris; I10 Essential (primary) hypertension; Z95.2 Presence of prosthetic heart valve; Z87.891 Personal history of nicotine dependence
CPT/HCPCS: 82435-PO; 82565-PO; 82947-PO; 84132-PO; 84295-PO; 84484-PO; 84520-PO; 85014-PO

== ENCOUNTER 2018-02-22 07:24 | Inpatient (IN) | payer OTHER ==
--- NOTE | 2018-02-22 07:47 | EDPHY ---
HPI/HX/ROS/PE/MDM Narrative: CHIEF COMPLAINT: Bloody stool HISTORY OF PRESENT ILLNESS: The patient is an anticoagulated (Plavix and Aspirin) 77 y/o female with a history of a TAVR and aortic valve replacement, and cardiac stents complaining of bloody stool onset this morning at 05:30. She has had hemorrhoids in the past and her last colonoscopy was 8 years ago without any significant findings. For the last several days she has felt normal and has had no abdominal pain. This morning she had an urgency to have a bowel movement upon waking up. She had no pain with the bowel movement and had more stool then blood. The next bowel movement, she noticed more blood than stool. She has had a total of 4 blood bowel movements. She did not feel weak at that time. Since arriving in the emergency department she has felt more weak than normal. She denies taking her hypertension medication this morning. No fever, chills, chest pain, shortness of breath, palpitations, vomiting, urinary complaints, headache, lightheadedness. REVIEW OF SYSTEMS: Aside from elements discussed in the HPI, a comprehensive 10-point review of systems was reviewed and is negative. PAST MEDICAL HISTORY: TAVR, cardiac stents, aortic valve replacement (2018), bilateral hip replacements, hemorrhoids SOCIAL HISTORY: Lives in [place], originally from [place], , retired VITAL SIGNS: Reviewed by me, BP at triage 219/119. Currently 190/110 GENERAL: Well-developed, well-nourished, resting comfortably in no respiratory distress. HEENT: Atraumatic. Eyes: No icterus, no injection. No pallor. Mouth: moist mucous membranes. No erythema or lesions. Neck: supple with no adenopathy. LUNGS: Clear to auscultation bilaterally, no wheezes, rhonchi or rales. CARDIAC: Regular rate and rhythm, no rubs, murmurs or gallops. ABDOMEN: Soft, nontender, nondistended, bowel sounds normal. RECTAL: Large external hemorrhoid not actively bleeding, gross blood on the glove, no pain or tenderness on rectal exam. BACK: No CVA tenderness. EXTREMITIES: No trauma. No edema. Range of motion is normal throughout. NEURO: Alert and oriented, grossly nonfocal. SKIN: Warm and dry, no rash. PSYCHIATRIC: Normal mentation, no agitation. Portions of this note were transcribed by a director medical affairs. I personally performed a history, physical exam, medical decision making, and confirmed accuracy of information the transcribed note. ED Course: The patient is an anticoagulated (Plavix and Aspirin) 77 y/o female with a history of a TAVR and aortic valve replacement, and cardiac stents complaining of bloody stool onset this morning at 05:30. She has had four bowel movements this morning. She denies any pain with the bowel movements. She does have a large external hemorrhoid that is not actively bleeding. There is gross blood on the glove but she has no pain or tenderness. Labs and EKG ordered. 0811: 12-LEAD EKG: Please see the full report in [facility]. My interpretation: Normal sinus rhythm with a rate of 56. There are no ischemic changes. 0835: Patient has an elevated troponin; she denies CP or SOB. Discussed with patient and advised she will need admission to hospital. 0849: I consulted with the hospitalist service, Dr. Barnett accepts admission of this patient. 0910: Reassessed patient and discussed laboratory and EKG findings. 0926: I consulted with Dr. Lofton, mortar man, who agrees to consult on this patient. MDM: Diff dx of patients presenting complaints considered including but not limited to upper GI hemorrhage, diverticular bleeding, hemorrhoidal bleeding, demand ischemia, ischemic bowel, lower gi bleeding, anemia, cardiac ischemia. - Data Points Laboratory Results: Laboratory Results 02/22/18 07:48 02/22/18 07:48 02/22/18 02/22/18 02/22/18 08:00 07:48 07:48 WBC RBC Hgb Hct MCV MCH MCHC RDW Plt Count MPV Neut % (Auto) Lymph % (Auto) [place] % (Auto) Eos % (Auto) Baso % (Auto) Nucleat RBC Rel Count Absolute Neuts (auto) Absolute Lymphs (auto) Absolute Monos (auto) Absolute Eos (auto) Absolute Basos (auto) Absolute Nucleated RBC Immature Gran % Immature Gran # PT INR Sodium 139 mEq/L mEq/L (135-145) Potassium 3.5 mEq/L mEq/L (3.5-5.2) Chloride 111 mEq/L H mEq/L (97-110) Carbon Dioxide 24 mEq/l mEq/l (22-31) Anion Gap 4 mEq/L L mEq/L (6-14) BUN 19 mg/dL mg/dL (7-23) Creatinine 0.9 mg/dL mg/dL (0.6-1.0) Estimated GFR > 60 Glucose 134 mg/dL H mg/dL (70-100) Calcium 9.8 mg/dL mg/dL (8.5-10.4) Troponin I 0.207 ng/mL H ng/mL (0.000-0.034) Stool Occult Bld Scrn POSITIVE H (NEGATIVE) Patient ABO/Rh A POSITIVE Antibody Screen NEGATIVE 02/22/18 02/22/18 07:48 07:48 WBC 7.08 10^3/uL 10^3/uL (3.80-9.50) RBC 4.10 10^6/uL L 10^6/uL (4.18-5.33) Hgb 12.2 g/dL L g/dL (12.6-16.3) Hct 35.2 % L % (38.0-47.0) MCV 85.9 fL fL (81.5-99.8) MCH 29.8 pg pg (27.9-34.1) MCHC 34.7 g/dL g/dL (32.4-36.7) RDW 14.0 % % (11.5-15.2) Plt Count 278 10^3/uL 10^3/uL (150-400) MPV 9.0 fL fL (8.7-11.7) Neut % (Auto) 74.0 % % (39.3-74.2) Lymph % (Auto) 14.8 % L % (15.0-45.0) [place] % (Auto) 10.2 % % (4.5-13.0) Eos % (Auto) 0.0 % L % (0.6-7.6) Baso % (Auto) 0.7 % % (0.3-1.7) Nucleat RBC Rel Count 0.0 % % (0.0-0.2) Absolute Neuts (auto) 5.24 10^3/uL 10^3/uL (1.70-6.50) Absolute Lymphs (auto) 1.05 10^3/uL 10^3/uL (1.00-3.00) Absolute Monos (auto) 0.72 10^3/uL 10^3/uL (0.30-0.80) Absolute Eos (auto) 0.00 10^3/uL L 10^3/uL (0.03-0.40) Absolute Basos (auto) 0.05 10^3/uL 10^3/uL (0.02-0.10) Absolute Nucleated RBC 0.00 10^3/uL 10^3/uL (0-0.01) Immature Gran % 0.3 % % (0.0-1.1) Immature Gran # 0.02 10^3/uL 10^3/uL (0.00-0.10) PT 13.4 SEC SEC (12.0-15.0) INR 1.00 (0.83-1.16) Sodium Potassium Chloride Carbon Dioxide Anion Gap BUN Creatinine Estimated GFR Glucose Calcium Troponin I Stool Occult Bld Scrn Patient ABO/Rh Antibody Screen Medications Given: Discontinued Medications Sodium Chloride (Ns) 500 mls @ 1,000 mls/hr IV EDNOW ONE PRN Reason: Protocol Stop: 02/22/18 08:41 Last Admin: 02/22/18 08:27 Dose: 500 mls General Time Seen by Provider: 02/22/18 07:43 Initial Vital Signs: Initial Vital Signs Temperature (C) 36.6 C 02/22/18 07:30 Heart Rate 70 02/22/18 07:30 Respiratory Rate 18 02/22/18 07:30 Blood Pressure 219/118 H 02/22/18 07:30 O2 Sat (%) 95 02/22/18 07:30 O2 Delivery Mode Room Air Allergies/Adverse Reactions: Cephalosporins Allergy (Severe, Verified 02/22/18 10:03) Anaphylaxis lisinopril Allergy (Intermediate, Verified 02/22/18 10:03) losartan Allergy (Intermediate, Verified 02/22/18 10:03) latex Allergy (Verified 02/22/18 07:26) Home Medications: Medication Instructions Recorded Allopurinol [Allopurinol 100 MG 300 mg PO DAILY 02/22/18 (*)] Aspirin EC [Aspirin EC 81 mg (*)] 81 mg PO DAILY 02/22/18 Chlorthalidone [Chlorthalidone 25 12.5 mg PO DAILY 02/22/18 mg (*)] Clopidogrel Bisulfate [Plavix (*)] 75 mg PO DAILY 02/22/18 Colchicine [Colchicine] 1 - 2 tab PO DAILY 02/22/18 Herbals/Supplements -Info Only 1 ea PO DAILY 02/22/18 Labetalol HCl [Trandate 100 mg (*)] 50 mg PO BID 02/22/18 Potassium Chloride [Klor-Con 10] 10 meq PO DAILY@14 02/22/18 Departure - Departure Disposition: [facility] Inpatient Acute Clinical Impression: Elevated troponin GI bleed Qualifiers: GI bleed type/associated pathology: unspecified gastrointestinal hemorrhage type Qualified Code(s): K92.2 - Gastrointestinal hemorrhage, unspecified Condition: Fair Report Scribed for: Trudy Peters Report Scribed by: Tammi Carrillo Date of Report: 02/22/18 Time of Report: 07:47
[2018-02-22 08:01] LABS: PLATELET COUNT 278 10^3/uL (150-400)
[2018-02-22] MEDS ORDERED: NS 500 ML IV ONE (08:12)
[2018-02-22 08:15] LABS: PROTIME(PATIENT) 13.4 SEC (12.0-15.0)
[2018-02-22] MEDS ORDERED: PEG 3350/NA SULF,BICARB,CL/KCL (GAVILYTE-G) 4000 ML BTL PO ONE (10:37)
[2018-02-22] MEDS ORDERED: ONDANSETRON 4 MG/2 ML VIAL IVP PRN (13:52)
[2018-02-22] MEDS ORDERED: ONDANSETRON DISINTEGRATING 4 MG TAB PO PRN (13:52)
--- NOTE | 2018-02-22 14:47 | GCON ---
DATE OF CONSULTATION: 02/22/2018 REFERRING PHYSICIAN: Carlos A Barnett MD REASON FOR CONSULTATION: Bright red blood per rectum. CHIEF COMPLAINT: Bright red blood per rectum. HISTORY OF PRESENT ILLNESS: The patient is a 77-year-old female with a history of coronary artery disease, aortic valve replacement, Plavix and aspirin use, who presents to [facility] with complaints of bright red blood per rectum. The patient was in her normal state of health this morning when she had 4 bowel movements which were bright red blood per rectum. She went to the emergency room and had 2 more bowel movements with the same characteristics. She states she has felt weak and somewhat dizzy in the emergency room. She denies any significant abdominal pain, but now states that she is having some abdominal discomfort. She denies any exacerbating or alleviating factors to her symptoms. She denies any chest pain or shortness of breath. The patient denies any prior episodes of gastrointestinal bleeding. She did have a colonoscopy by my partner, Dr. Moustapha Mclain, on 04/04/2009, where she was found to have diverticular disease associated with the sigmoid colon. I am being asked by Dr. Barnett to evaluate the patient in consultation regarding her bright red blood per rectum. PAST MEDICAL HISTORY: 1. Hypertension. 2. Gastroesophageal reflux disease. 3. Coronary artery disease. 4. Gout. PAST SURGICAL HISTORY: 1. TAVR. 2. Coronary artery stents. 3. Bilateral hip replacements. ALLERGIES: Cephalosporins, losartan, and latex. MEDICATIONS: Allopurinol 100 mg, Plavix 81 mg, chlorthalidone 25 mg, Plavix, colchicine, labetalol, potassium chloride. FAMILY HISTORY: Father had leukemia. No history of colon cancer. SOCIAL HISTORY: Two children. . From [place]. Social alcohol. Former smoker. REVIEW OF SYSTEMS: A 14-point comprehensive review of systems was asked. Pertinent positives and negatives per HPI. PHYSICAL EXAM: VITAL SIGNS: Blood pressure 160/80, pulse 60, respirations 13, O2 saturation 98% on room air, temperature 36. GENERAL: Awake, alert, oriented x3. No distress. HEENT: Anicteric. Moist mucosa. NECK: No JVD. CARDIOVASCULAR: Regular rate and rhythm. Positive S1, S2. No murmurs or gallops appreciated. LUNGS: Clear to auscultation bilaterally. No wheezes, rales or rhonchi. ABDOMEN: Soft, nontender, nondistended. Positive bowel sounds. No guarding. No rebound. EXTREMITIES: No clubbing, cyanosis or edema. NEUROLOGIC: 2 through 12 grossly intact. PSYCH: Normal affect. SKIN : Warm. No rash. MUSCULOSKELETAL: No obvious joint effusions. BLOOD WORK: WBC 7.08, hemoglobin 12.2, sodium 139, potassium 3.5, chloride 111 , bicarb 24, BUN 19, creatinine 0.9. ASSESSMENT AND PLAN: 1. Bright red blood per rectum- with no pain. Last colonoscopy was in 2009. Does have significant sigmoid diverticulosis noticed on previous colonoscopy. Etiology? Suspect diverticular bleed? At this time, I recommend to monitor hemoglobin and hematocrit and transfuse as needed. Would hold nonsteroidal anti -inflammatory. If any further episodes of bleeding, would consider a bleeding scan. Will plan on prepping the patient for colonoscopy. Risks, benefits, and alternatives of the procedure were discussed. Risks of infection, bleeding, perforation and sedation were discussed. Due to her history of coronary artery disease as well as use of Plavix/aspirin she is at an increased risk of bleeding and sedation. Will need anesthesiology support. 2. History of coronary artery disease. 3. Aortic valve replacement. 4. Hypertension. Thank you very much for this consultation. /[id number]/MODL MTDD
[2018-02-22 15:07] LABS: INR 1.09 (0.83-1.16); PROTIME(PATIENT) 14.3 SEC (12.0-15.0)
--- NOTE | 2018-02-22 15:26 | CPEKG ---
Test Reason : OPEN Blood Pressure : / mmHG Vent. Rate : 056 BPM Atrial Rate : 056 BPM P-R Int : 133 ms QRS Dur : 093 ms QT Int : 439 ms P-R-T Axes : 067 -34 127 degrees QTc Int : 424 ms Sinus rhythm LVH with secondary repolarization abnormality Confirmed by Trudy Peters ([id number]) on 02/22/2018 3:25:47 PM Referred By: Confirmed By:Trudy Peters
--- NOTE | 2018-02-22 15:38 | GHP ---
DATE OF ADMISSION: 02/22/2018 HISTORY OF PRESENT ILLNESS: The patient is a 77-year-old female with history of recent TAVR and ofelia nary stent as well as well as coronary artery disease who presents with bright red blood per rectum. She woke up this morning and had fecal urgency. She had a bloody stool at 5:30 this morning. She h ad a colonoscopy showing diverticulosis in the past. She takes aspirin and Plavix, but no anticoagul ants. She had 4 bloody bowel movements without weakness, shortness of breath, or chest pain __ dyspnea on exertion. She had a stent placed 3 months ago at [facility]. I do not have the records available. She was told that she would likely need lifelong aspirin and Plavix. She has not had recent heart failure symptoms, PND, orthopnea, or lower extremity edema, nor has she had dyspnea. REVIEW OF SYSTEMS: Complete 10-point review of systems conducted and negative except as in the HPI. PAST MEDICAL HISTORY: TAVR about 3 months ago, history of cardiac stents most recently 3 months ago, hip replacement, hemorrhoids, gout. SOCIAL HISTORY: No tobacco, no alcohol. Lives in [place]. Originally from [place]. She is and retired. FAMILY HISTORY: Parents . ALLERGIES: Cephalosporins, lisinopril, losartan, and latex. MEDICATIONS: Chlorthalidone, allopurinol, enteric-coated aspirin, Plavix, colchicine, labetalol, pot assium chloride. PHYSICAL EXAMINATION: PRESENTING VITALS: Blood pressure 219/118, now 138/64. Pulse 70, breathing 1 8 times a minute, 95% on room air. GENERAL: No acute distress. HEENT: Sclerae anicteric. Orophar ynx clear. Mucous membranes moist. NECK: Supple without lymphadenopathy or JVD. LUNGS: Clear to auscultation bilaterally. HEART: S1, S2. There is a systolic murmur. ABDOMEN: Soft, nontender, n ondistended. LOWER EXTREMITIES: Without edema. Calves nontender. SKIN: Without rash. NEUROLOGIC : Nonfocal. LABS: White count 7, hemoglobin 12, hematocrit 35, platelets are 278,000. Her baseline hemoglobin i s mid 13s. Repeat hemoglobin done a few hours later was 10.8. INR is normal. Sodium 139, potassium 3.5, chloride 111, bicarb 24, BUN 19, creatinine 0.9, glucose 134. Troponin 0.207. Fecal occult wa s positive. EKG interpreted by me shows sinus at 56 with left axis deviation, normal intervals. There is a bipha sic T-wave across in the lateral leads with a 0.[address] depression, most consistent with LVH with str ain. Compared with prior, lateral changes are new. She had a cath report from February 2016, 2 years ago, today actually, showing left main with 20% to 3 0%, patent mid LAD stent, left circumflex with ostial 50%, 1st OM with a 60% lesion. RCA with a prox imal 50%, ostial PDA 80% to 90%, proximal ramus is 70%. Normal wall motion. Elevated filling pressu res. EKG on that day in the setting of hypertension is similar to today's EKG. I have discussed the case with Dr. Trudy Peters. ASSESSMENT AND PLAN: This is a 77-year-old female with coronary artery disease with recent stent jessie cement who presents with bright red blood per rectum and acute blood loss anemia. 1. Bright red blood per rectum. This most likely represents a diverticular bleed given her known hi story of diverticulosis and the nature of the bleed. Gastroenterology has been consulted and will pe rform colonoscopy tomorrow. We will prep her with GoLYTELY. 2. Recent stent with active bleeding. The patient has a recent stent on the basis of her cath repor t. There are a number of vessels that could be in. I have requested records from [facility]. Nonetheless, we will continue aspirin and Plavix today as the risk of in-stent thrombosis is real a nd potentially life-threatening. 3. History of transcatheter aortic valve replacement. The patient is not in heart failure. 4. Indeterminate troponin with potentially abnormal EKG. We will cycle her troponins. She is havin g no anginal symptoms at this time. We will keep her hemoglobin greater than 9. 5. Acute rapid bleeding. We will repeat her hematocrit, transfuse for hemoglobin less than 9 given her ongoing blood loss. 6. Prophylaxis SCDs. 7. Hypertension. I will hold her chlorthalidone. Continue her beta baljit. DISPOSITION: Inpatient status. /[id number]/MODL
[2018-02-22] MEDS ORDERED: IOPAMIDOL (ISOVUE 370) 100 ML BTL IV ONE (15:39)
--- NOTE | 2018-02-22 15:41 | HOSPPROG ---
Hospitalist Progress Note Assessment/Plan: continues to have brisk bleeding hg 9.4 from baseline 13.5 1. transfuse [address] angio of abdomen, IR to review 3. angiogram if active bleeding sen 4. general surgery to see 5. continue asa/plavix as she has had coated stent three months ago 6. hold on prep 7. 45 minutes crit care Objective: Vital Signs Temp Pulse Resp BP Pulse Ox 36.7 C 57 L 16 136/64 H 94 02/22/18 10:58 02/22/18 14:59 02/22/18 14:59 02/22/18 14:59 02/22/18 14:59 Laboratory Results 02/22/18 14:41 02/21/18 02/22/18 02/23/18 05:59 05:59 05:59 Intake Total 1000 Balance 1000 PT 14.3 SEC (12.0-15.0) 02/22/18 14:41 INR 1.09 (0.83-1.16) 02/22/18 14:41 ICD10 Worksheet Patient Problems: Problems Problem Status Onset Elevated troponin Acute GI bleed Acute
[2018-02-22] MEDS ORDERED: HEPARIN 1000 UNIT/1 ML MDV ONE ×2 (15:44→19:29)
--- NOTE | 2018-02-22 16:01 | PDMN ---
Medical Necessity Medical necessity: MCG M182 LGIB: 77 yo w/ acute LGIB per rectum w/ acute blood loss anemia. Q4H H/H cont to decrease from to 11/13 in 6-7 hour period. Elevated troponin noted w/ abnormal EKG. GI consult, gen surgery consult, monitor on tele, transfuse 2U PRBC, IVF. Meets IP criteria for ongoing active bleeding. Hx TAVR and stent placement 3mo ago, JOSETTE
--- NOTE | 2018-02-22 16:32 | PDPROPOC ---
Sedation Plan of Care ASA Classification: ASA 3 Mallampati Score: Class 2 Mallampati Reference Image:
[2018-02-22] MEDS: ASPIRIN EC 81 MG TAB PO SCH (16:36)
[2018-02-22] MEDS: CLOPIDOGREL BISULFATE 75 MG TAB PO SCH (16:36)
[2018-02-22] MEDS: POTASSIUM CL 10 MEQ TAB PO SCH (16:37)
[2018-02-22] MEDS: COLCHICINE 0.6 MG CAP/TAB PO SCH (16:37)
[2018-02-22] MEDS ORDERED: fentaNYL 100 MCG/2 ML INJ ONE (16:50)
[2018-02-22] MEDS ORDERED: NALOXONE HCL 0.4 MG/ML INJ ONE (16:50)
[2018-02-22] MEDS ORDERED: IOPAMIDOL (ISOVUE-300) 100 ML BTL ONE ×2 (17:24→18:10)
[2018-02-22] MEDS ORDERED: LIDOCAINE 1% 300 MG/30 ML SDV ONE (17:24)
--- NOTE | 2018-02-22 18:19 | GCON ---
DATE OF CONSULTATION: 02/22/2018 HISTORY OF PRESENT ILLNESS: Patient is a 77-year-old female who has presented with lower gastrointes tinal bleeding with bright red rectal blood, which has persisted for over 24 hours. This is painless bleeding. She has no history of this before and no history of diverticulitis. She is on Plavix and has had a recent aortic TAVR procedure. She has also had a cardiac stent placed only 3 months ago. ALLERGIES: Cephalosporin, lisinopril, latex, and losartan. PRESENT MEDICATIONS: Allopurinol, baby aspirin, Plavix, colchicine, chlorthalidone, labetalol, and p otassium. PAST MEDICAL HISTORY: Includes a TAVR procedure 3 months ago, cardiac stent, total hip replacement, hemorrhoid surgery, and gout. SOCIAL HISTORY: Reveals she does not smoke. FAMILY HISTORY: Noncontributory. PHYSICAL EXAMINATION: GENERAL: An alert, comfortable 77-year-old female in no acute distress, afebr ile. HEENT: Nonicteric, without adenopathy or oral lesions. NECK: Supple. Full range of motion. No masses. CHEST: Clear and symmetric. COR: Regular rhythm. ABDOMEN: Soft, nontender, minimall y distended with no hernias or masses. RECTAL: Exam reveals bright red blood on rectal exam. EXTREM ITIES: Full range of motion, full distal pulses. NEUROLOGIC: Physiologic. PSYCH: Reveals her to be alert, oriented, and cooperative. IMPRESSION: Lower gastrointestinal bleed, probably diverticular in nature, but we will at least need to hold the Plavix for short time despite the risk to her stent. Would recommend angiography for ev aluation of bleeding site and possible therapeutic intervention. If that is unsuccessful or create c omplications, then surgery may become necessary if her bleeding persists. Could also consider tranex amic acid medication to help with hemostasis. /[id number]/MODL
--- NOTE | 2018-02-22 19:47 | PDRADPN ---
Radiology Procedure Note Date of Procedure: 02/22/18 Radiologist: Malcom Motley Anesthesia: IV Sedation Pre-op Diagnosis: BRBPR Post-op Diagnosis: same Procedure: mesenteric angiogram Finding(s): SMA and SHIVAM interrogated--no bleed seen; 200 units nitro and 2000 units heparin selectively injected into SHIVAM without bleed visualized Inf/Abcess present in the surg proc area at time of surgery?: No
[2018-02-22] MEDS ORDERED: NITROGLYCERIN/D5W 50 MG/250 ML BOTTLE IV ONE (19:48)
[2018-02-22] MEDS: LABETALOL HCL 100 MG TAB PO SCH (22:22)
[2018-02-23 05:24] LABS: PLATELET COUNT 177 10^3/uL (150-400)
[2018-02-23] MEDS: COLCHICINE 0.6 MG CAP/TAB PO SCH (08:36)
[2018-02-23] MEDS: LABETALOL HCL 100 MG TAB PO SCH ×2 (08:36→20:10)
[2018-02-23] MEDS: CLOPIDOGREL BISULFATE 75 MG TAB PO SCH ×2 (08:36→13:22)
[2018-02-23] MEDS: ASPIRIN EC 81 MG TAB PO SCH ×2 (08:39→13:22)
[2018-02-23] MEDS ORDERED: Herbals/Supplements -Info Only PO SCH (09:00)
[2018-02-23] MEDS ORDERED: ALLOPURINOL 100 MG TAB PO SCH (09:00)
--- NOTE | 2018-02-23 09:16 | SOAPPROG ---
SOAP Progress Note Assessment/Plan: Assessment: Plan: 02/23/18 09:05 A/P 1. Bright red blood per rectum- Diverticular? Did have prior colonoscopy in 2009 with sigmoid diverticulosis. Angiogram negative for bleed. I still having blood BMs. I recommended colonoscopy and discussed benefits, alternatives, and risks at length, however she refused procedure last night. I discussed the benefits again today but she is unwilling to do proceed. She understands the benefits. Recommend bleeding scan if recurrent bleeding. However, she refuses all interventions at this time. Monitor H/H and transfuse as needed. Subjective: cc: Follow up GI bleed Still having bloody BMs. No significant abdominal pain. Objective: Vital Signs Temp Pulse Resp BP Pulse Ox 36.7 C 67 16 140/78 H 93 02/23/18 07:47 02/23/18 07:47 02/23/18 07:47 02/23/18 07:47 02/23/18 07:47 Laboratory Results 02/23/18 04:46 02/23/18 04:46 02/22/18 02/23/18 02/24/18 05:59 05:59 05:59 Intake Total 150 Output Total 700 Balance -550 PT 14.3 SEC (12.0-15.0) 02/22/18 14:41 INR 1.09 (0.83-1.16) 02/22/18 14:41 Physical Exam - Physical Exam General Appearance: alert, no apparent distress EENT: No scleral icterus (R), No scleral icterus (L) Respiratory: lungs clear, normal breath sounds, No decreased breath sounds Cardiac/Chest: regular rate, rhythm Abdomen: non-tender, soft, No distended, No guarding, No rebound Skin: normal color, warm/dry Neuro/Psych: normal mood/affect, oriented x 3 ICD10 Worksheet Patient Problems: Problems Problem Status Onset Elevated troponin Acute GI bleed Acute
--- NOTE | 2018-02-23 10:23 | HOSPPROG ---
Hospitalist Progress Note Assessment/Plan: 77 yo F w recent AVR, stent here w likely diverticular bleed bleed: exact source not identified, trajectory c/w diverticular bleed in this patiwnt w known diverticulosis continue q4 hct transfuse for hg <8 or rapid bleeding tagged rbc scan vs repeat angio if bleeding increases cad: stent in 11/03- told to take asa/plavix for life continue asa plavi through this bleeding episode I am attempting to get oSH records ABLA: as above TAVR: doing well dispo: inpt Subjective: case d/w tootie shannon and art. no source of bleeding identified in SMA/SHIVAM angiogram. less bleeding overnight Objective: Vital Signs Temp Pulse Resp BP Pulse Ox 36.7 C 67 16 140/78 H 93 02/23/18 07:47 02/23/18 07:47 02/23/18 07:47 02/23/18 07:47 02/23/18 07:47 Laboratory Results 02/23/18 04:46 02/23/18 04:46 02/22/18 02/23/18 02/24/18 05:59 05:59 05:59 Intake Total 150 250 Output Total 700 Balance -550 250 PT 14.3 SEC (12.0-15.0) 02/22/18 14:41 INR 1.09 (0.83-1.16) 02/22/18 14:41 - Physical Exam Constitutional: no apparent distress, appears nourished Eyes: PERRL, anicteric sclera Ears, Nose, Mouth, Throat: moist mucous membranes, hearing normal Cardiovascular: regular rate and rhythym, no murmur, rub, or gallop Respiratory: no respiratory distress, no rales or rhonchi Gastrointestinal: normoactive bowel sounds, soft, non-tender abdomen Genitourinary: no bladder fullness, No centeno in urethra Skin: warm, normal color Musculoskeletal: full muscle strength, no muscle tenderness Neurologic: AAOx3 ICD10 Worksheet Patient Problems: Problems Problem Status Onset Elevated troponin Acute GI bleed Acute
--- NOTE | 2018-02-23 10:58 | SOAPPROG ---
GREG Progress Note Assessment/Plan: Assessment/Plan: 77 y F hx TVAR, cardiac stents x 2--most recently in 11/03. GI bleed. Still bleeding, though reportedly less overnight and this am. Source unclear, but presumably lower GI and probably diverticular related. No source on mesenteric angiography, and +extravasation at rectosigmoid colon on CTA. Viewed stool directly myself. +bright red, but some clotted material also. Agree with GI recommendation for colonoscopy. Patient refusing intervention for now. Seems to be more agreeable if problem persists tomorrow. May still need surgical colon resection. Repeat H&H at 11am. Per Dr. Dorsey, would recommend holding DAPT , but this comes with risk to the stent. S: feels weak. +bloody BM around 8 am and again just now. O: alert, nad ncat ctab rrr abd soft, mild generalized tenderness but no rebound or guarding 02/23/18 10:58 Objective: Vital Signs Temp Pulse Resp BP Pulse Ox 36.7 C 67 16 140/78 H 93 02/23/18 07:47 02/23/18 07:47 02/23/18 07:47 02/23/18 07:47 02/23/18 07:47 Laboratory Results 02/23/18 04:46 02/23/18 04:46 02/22/18 02/23/18 02/24/18 05:59 05:59 05:59 Intake Total 150 250 Output Total 700 Balance -550 250 PT 14.3 SEC (12.0-15.0) 02/22/18 14:41 INR 1.09 (0.83-1.16) 02/22/18 14:41 ICD10 Worksheet Patient Problems: Problems Problem Status Onset Elevated troponin Acute GI bleed Acute
--- NOTE | 2018-02-23 12:11 | ASMTCMCOM ---
CM Note CM Note Notes: Pt is a 77 yo F who presents with GI bleed. Pt lives with her Vernon who is at bedside. OT rec: HHC and PT eval pending. CM to follow to determine d/c plan. Pt uses walker at home. CM to follow. Plan: TBD Date Signed: 02/23/2018 12:09 PM Electronically Signed By:MIKIE Gotti
[2018-02-23] MEDS: POTASSIUM CL 10 MEQ TAB PO SCH (13:22)
--- NOTE | 2018-02-23 14:33 | SOAPPROG ---
SOAP Progress Note Assessment/Plan: Assessment: very diffficult situation, bleeding has slowed/ hct dropped to 23/ abd soft, nontender refused colonoscopy angio negative back on plavix Plan:if recurrent major bleeding will need surgery to salvage/ consider TXA 02/23/18 14:30 Objective: Vital Signs Temp Pulse Resp BP Pulse Ox 36.5 C 59 L 14 144/72 H 92 02/23/18 12:00 02/23/18 12:00 02/23/18 12:00 02/23/18 12:00 02/23/18 12:00 Laboratory Results 02/23/18 11:03 02/23/18 04:46 02/22/18 02/23/18 02/24/18 05:59 05:59 05:59 Intake Total 150 900 Output Total 700 Balance -550 900 PT 14.3 SEC (12.0-15.0) 02/22/18 14:41 INR 1.09 (0.83-1.16) 02/22/18 14:41 ICD10 Worksheet Patient Problems: Problems Problem Status Onset Elevated troponin Acute GI bleed Acute
[2018-02-24] MEDS ORDERED: ALLOPURINOL 300 MG TAB PO SCH (09:00)
[2018-02-24] MEDS: LABETALOL HCL 100 MG TAB PO SCH ×2 (09:12→20:47)
[2018-02-24] MEDS: COLCHICINE 0.6 MG CAP/TAB PO SCH ×2 (09:13→11:38)
--- NOTE | 2018-02-24 09:20 | SOAPPROG ---
GREG Progress Note Assessment/Plan: Assessment/Plan: 77 y F hx TVAR, cardiac stents x 2--most recently in 11/03. GI bleed. Actively bleeding. Probable colonic source, likely rectosigmoid and diverticular. Hct dropped despite pRBC yesterday evening. +bloody BM again this am. Plavix and ASA continued for recent stent. Agree with GI recommendation for colonoscopy. I urged Marlee to consider this again. She is hesitant but is willing to discuss it with the hospitalist. May still need surgical colon resection. Per Dr. Dorsey, would recommend holding DAPT, but this comes with risk to the stent. S: still feels weak. seen while using walker in [place] and walked to room. + bloody BM this am, none overnight. O: alert, nad ncat ctab rrr abd soft, mild generalized tenderness but no rebound or guarding 02/24/18 09:02 Objective: Vital Signs Temp Pulse Resp BP Pulse Ox 38.1 C 67 16 150/70 H 95 02/24/18 08:00 02/24/18 08:00 02/24/18 08:00 02/24/18 04:00 02/24/18 08:00 Laboratory Results 02/24/18 04:10 02/24/18 04:10 02/23/18 02/24/18 02/25/18 05:59 05:59 05:59 Intake Total 150 1920 420 Output Total 700 Balance -550 1920 420 PT 14.3 SEC (12.0-15.0) 02/22/18 14:41 INR 1.09 (0.83-1.16) 02/22/18 14:41 ICD10 Worksheet Patient Problems: Problems Problem Status Onset Elevated troponin Acute GI bleed Acute
[2018-02-24] MEDS: ACETAMINOPHEN 325 MG TAB PO PRN (09:51)
[2018-02-24] MEDS: ASPIRIN EC 81 MG TAB PO SCH (10:02)
[2018-02-24] MEDS: CLOPIDOGREL BISULFATE 75 MG TAB PO SCH (10:02)
--- NOTE | 2018-02-24 10:10 | HOSPPROG ---
Hospitalist Progress Note Assessment/Plan: 77 yo F w recent AVR, stent here w likely diverticular bleed bleed: exact source not identified, trajectory c/w diverticular bleed in this patient w known diverticulosis ongoing blood loss 1. give add'l 2 units today 2. transfuse for hg < 8 3. prep grady, colonoscopy in AM 4. possibel partial colectomy cad: drug eluting stent in 11/03 in proximal RCA this is high risk for stopping asa/plavix would still be in her system for several days if held 1-2 days not safe to hold for longer ABLA: as above TAVR: doing well dispo: inpt Subjective: continues to bleed this AM. discussed case w [facility] computator- she has a ROSALINO in proximal RCA. d/w griselda hogan Objective: Vital Signs Temp Pulse Resp BP Pulse Ox 38.1 C 67 16 184/90 H 95 02/24/18 08:45 02/24/18 08:45 02/24/18 08:45 02/24/18 08:45 02/24/18 08:45 Laboratory Results 02/24/18 04:10 02/24/18 04:10 02/23/18 02/24/18 02/25/18 05:59 05:59 05:59 Intake Total 150 1920 420 Output Total 700 Balance -550 1920 420 PT 14.3 SEC (12.0-15.0) 02/22/18 14:41 INR 1.09 (0.83-1.16) 02/22/18 14:41 - Physical Exam Constitutional: no apparent distress, appears nourished Eyes: PERRL, anicteric sclera Ears, Nose, Mouth, Throat: moist mucous membranes, hearing normal Cardiovascular: regular rate and rhythym, no murmur, rub, or gallop Respiratory: no respiratory distress, no rales or rhonchi Gastrointestinal: normoactive bowel sounds, soft, non-tender abdomen Genitourinary: no bladder fullness, No centeno in urethra Skin: warm, normal color Musculoskeletal: full muscle strength Neurologic: AAOx3 ICD10 Worksheet Patient Problems: Problems Problem Status Onset Elevated troponin Acute GI bleed Acute
[2018-02-24] MEDS: ALLOPURINOL 300 MG TAB PO SCH (11:38)
[2018-02-24] MEDS: POTASSIUM CL 10 MEQ TAB PO SCH (15:01)
[2018-02-24] MEDS ORDERED: PEG 3350/NA SULF,BICARB,CL/KCL (GAVILYTE-G) 4000 ML BTL PO ONE (18:01)
[2018-02-25] MEDS: LABETALOL HCL 100 MG TAB PO SCH ×2 (09:29→20:18)
[2018-02-25] MEDS: CLOPIDOGREL BISULFATE 75 MG TAB PO SCH (09:29)
[2018-02-25] MEDS: ASPIRIN EC 81 MG TAB PO SCH (09:29)
--- NOTE | 2018-02-25 09:47 | HOSPPROG ---
Hospitalist Progress Note Assessment/Plan: 77 yo F w recent AVR, stent here w likely diverticular bleed bleed: exact source not identified, trajectory c/w diverticular bleed in this patient w known diverticulosis ongoing blood loss 1. give add'l 2 units today 2. transfuse for hg < 8 3. colonoscopy at 2 4. possibel partial colectomy cad: drug eluting stent in 11/03 in proximal RCA this is high risk for stopping asa/plavix would still be in her system for several days if held 1-2 days not safe to hold for longer ABLA: getting 6th and 7th unit today folllow q6 TAVR: doing well dispo: inpt Subjective: case d/w dr villalobos. still bleeding. dyspneic Objective: Vital Signs Temp Pulse Resp BP Pulse Ox 36.9 C 83 18 132/74 H 90 L 02/25/18 07:36 02/25/18 07:36 02/25/18 07:36 02/25/18 07:36 02/25/18 07:36 Laboratory Results 02/25/18 03:45 02/25/18 03:45 02/24/18 02/25/18 02/26/18 05:59 05:59 05:59 Intake Total 1920 2220 Output Total 800 Balance 1920 1420 PT 14.3 SEC (12.0-15.0) 02/22/18 14:41 INR 1.09 (0.83-1.16) 02/22/18 14:41 - Physical Exam Constitutional: no apparent distress, appears nourished Eyes: PERRL, anicteric sclera Ears, Nose, Mouth, Throat: moist mucous membranes, hearing normal Cardiovascular: regular rate and rhythym, systolic murmur Respiratory: no respiratory distress, no rales or rhonchi, other (no crackles) Gastrointestinal: normoactive bowel sounds, soft, non-tender abdomen Genitourinary: no bladder fullness, No centeno in urethra Skin: warm, normal color Musculoskeletal: No full muscle strength Neurologic: AAOx3 ICD10 Worksheet Patient Problems: Problems Problem Status Onset Elevated troponin Acute GI bleed Acute
--- NOTE | 2018-02-25 10:01 | SOAPPROG ---
GREG Progress Note Assessment/Plan: Assessment/Plan: 77 y F hx TAVR, cardiac stents x 2--most recently in 11/03. GI bleed. Actively bleeding. Probable colonic source, likely rectosigmoid and diverticular. Hct continues to drop despite additional blood transfusions. Plavix and asa continued for recent stent. Pt has agreed to colonoscopy. She is on the schedule for this afternoon. Still may need surgery for colon resection pending colonoscopy findings. S: Weak. Hard to get up and go to the bathroom. Reports that her stool now has dark blood in addition to bright red blood. Denies n/v. O: Alert Hct down to 20.2 today. ctab, no increased wob rrr abdomen soft, nontender skin pale 02/25/18 09:57 Objective: Vital Signs Temp Pulse Resp BP Pulse Ox 36.9 C 83 18 132/74 H 90 L 02/25/18 07:36 02/25/18 07:36 02/25/18 07:36 02/25/18 07:36 02/25/18 07:36 Laboratory Results 02/25/18 03:45 02/25/18 03:45 02/24/18 02/25/18 02/26/18 05:59 05:59 05:59 Intake Total 1920 2220 Output Total 800 Balance 1920 1420 PT 14.3 SEC (12.0-15.0) 02/22/18 14:41 INR 1.09 (0.83-1.16) 02/22/18 14:41 ICD10 Worksheet Patient Problems: Problems Problem Status Onset Elevated troponin Acute GI bleed Acute
[2018-02-25] MEDS: POTASSIUM CL 10 MEQ TAB PO SCH (11:06)
[2018-02-25] MEDS: COLCHICINE 0.6 MG CAP/TAB PO SCH (11:06)
[2018-02-25] MEDS: ALLOPURINOL 300 MG TAB PO SCH (11:07)
[2018-02-25] MEDS: ACETAMINOPHEN 325 MG TAB PO PRN (12:12)
--- NOTE | 2018-02-25 12:26 | ASMTCMCOM ---
CM Note CM Note Notes: 02/25/2018 Case Management Note Discussed pt during rounds this morning. Pt has had 7 units of blood since admission, GI scope planned for today. PT is recommending home with outpatient rehab. Case Management d/c poc: anticipating home with family and follow up as directed. Case Management to follow. Date Signed: 02/25/2018 12:25 PM Electronically Signed By:Shelby Merrill RN
[2018-02-25] MEDS ORDERED: LR 1,000 ML IV ONE (13:34)
--- NOTE | 2018-02-25 13:43 | PDANEPAE ---
ANE History of Present Illness colonoscopy, egd ANE Past Medical History - Cardiovascular History Hx Hypertension: Yes Hx Arrhythmias: No Hx Chest Pain: No Hx Coronary Artery / Peripheral Vascular Disease: Yes Hx CHF / Valvular Disease: Yes Cardiovascular History Comment: TAVR - Pulmonary History Hx COPD: No Hx Asthma/Reactive Airway Disease: No Hx Recent Upper Respiratory Infection: No Hx Oxygen in Use at Home: No Hx Sleep Apnea: No Sleep Apnea Screening Result - Last Documented: Negative - Neurologic History Hx Cerebrovascular Accident: No Hx Seizures: No Hx Dementia: No - Endocrine History Hx Diabetes: No Hypothyroid: No Hyperthyroid: No Obesity: no - Renal History Hx Renal Disorders: No - Liver History Hx Hepatic Disorders: No - Chronic Pain History Chronic Pain: No ANE Review of Systems Review of Systems: - Exercise capacity Exercise capacity: >=4 METS ANE Patient History - Allergies Allergies/Adverse Reactions: Cephalosporins Allergy (Severe, Verified 02/22/18 10:03) Anaphylaxis lisinopril Allergy (Intermediate, Verified 02/22/18 10:03) losartan Allergy (Intermediate, Verified 02/22/18 10:03) latex Allergy (Verified 02/22/18 07:26) - Home Medications Home medications: home medication list seen and reviewed Home Medications: Allopurinol [Allopurinol 100 MG (*)] 300 mg PO DAILY 02/22/18 [Last Taken ] Aspirin EC [Aspirin EC 81 mg (*)] 81 mg PO DAILY 02/22/18 [Last Taken 02/21/18] Chlorthalidone [Chlorthalidone 25 mg (*)] 12.5 mg PO DAILY 02/22/18 [Last Taken 02/21/18] Clopidogrel Bisulfate [Plavix (*)] 75 mg PO DAILY 02/22/18 [Last Taken 02/21/18] Colchicine [Colchicine] 1 - 2 tab PO DAILY 02/22/18 [Last Taken 02/21/18] Herbals/Supplements -Info Only 1 ea PO DAILY 02/22/18 [Last Taken 02/21/18] Labetalol HCl [Trandate 100 mg (*)] 50 mg PO BID 02/22/18 [Last Taken 02/21/18] Potassium Chloride [Klor-Con 10] 10 meq PO DAILY@14 02/22/18 [Last Taken ] - NPO status NPO Status: no food or drink >8 hours NPO Since - Liquids (Date): 02/24/18 NPO Since - Liquids (Time): 12:43 NPO Since - Solids (Date): 02/23/18 - Smoking Hx Smoking Status: Former smoker ANE Labs/Vital Signs - Labs Result Diagrams: 02/25/18 03:45 02/25/18 03:45 - Vital Signs Blood Pressure: 160/64 Heart Rate: 64 Respiratory Rate: 16 O2 Sat (%): 94 Height: 152.4 cm Weight: 64.2 kg ANE Physical Exam - Airway Mallampati Score: Class 2 Mouth exam: normal dental/mouth exam - Pulmonary Pulmonary: no respiratory distress - Cardiovascular Cardiovascular: regular rate and rhythym - ASA Status ASA Status: III ANE Anesthesia Plan Anesthesia Plan: GA with mask, MAC
[2018-02-25] MEDS ORDERED: EPINEPHrine 1 MG/ML INJ ONE (13:50)
[2018-02-25] MEDS ORDERED: LIDOCAINE 2% 5 ML SDV ONE (13:54)
[2018-02-25] MEDS ORDERED: MIDAZOLAM 2 MG/2 ML VIAL ONE (13:54)
[2018-02-25] MEDS ORDERED: PROPOFOL/EMULSION 500 MG/50 ML BOTTLE IV ONE (13:54)
--- NOTE | 2018-02-25 14:12 | GIREPORT ---
[facility] - Endoscopy Department Patient Name: HEYDI CANALES Procedure Date: 02/25/2018 12:39 PM Patient Type: Inpatient Attending MD/ ER Physician: Ambrose Lofton MD Procedure: Upper GI endoscopy Indications: Hematochezia, Melena Patient Profile: 77 year old female presents for evaluation of a GI bleed. Suspected low er but has had black color to her stool. Providers: Ambrose Lofton MD Medicines: Monitored Anesthesia Care Complications: No immediate complications. Estimated blood loss: None. Description of Procedure: After obtaining informed consent, the endoscope was passed under direct vision. Throughout the procedure, the patient's blood pressure, pulse, and oxygen saturations were monitored continuously. The Endoscope was intro duced through the mouth, and advanced to the second part of duodenum. The [facility] er GI endoscopy was accomplished without difficulty. The patient tolerated th e procedure well. Findings: The examined esophagus was normal. A hiatal hernia was present. The examined duodenum was normal. Estimated Blood Loss: Estimated blood loss: none. Post Op Diagnosis: - Normal esophagus. - Hiatal hernia. - Normal examined duodenum. - No specimens collected. - Etiology? No upper source noted. Proceed with colonoscopy. Recommendation: - Perform a colonoscopy today. - Thank you for allowing me to participate in the care of your patient. Attending Participation: I personally performed the entire procedure. Ambrose Lofton MD Ambrose Lofton MD 02/25/2018 2:12:07 PM This report has been signed electronicallyAmbrose Lofton MD Number of Addenda: 0 Note Initiated On: 02/25/2018 12:39 PM [email or web address]
[2018-02-25] MEDS ORDERED: fentaNYL 100 MCG/2 ML INJ ONE (14:19)
[2018-02-25] MEDS ORDERED: fentaNYL 100 MCG/2 ML INJ IVP PRN (14:42)
[2018-02-25] MEDS ORDERED: NALOXONE HCL 0.4 MG/ML INJ IVP PRN (14:42)
[2018-02-25] MEDS ORDERED: ONDANSETRON 4 MG/2 ML VIAL IVP PRN (14:42)
[2018-02-25] MEDS ORDERED: ALBUTEROL 3 ML DEYVIAL IH PRN (14:42)
--- NOTE | 2018-02-25 15:02 | POSTANESTH ---
Post Anesthetic Evaluation Cardiovascular Status: Normal, Stable Respiratory Status: Normal, Stable Level of Consciousness/Mental Status: Can Participate in Eval Pain Control: Adequate, Prn Tx Ordered Nausea/Vomiting Control: Adequate, Prn Tx Ordered Complications Possibly Related to Anesthesia: None Noted
--- NOTE | 2018-02-25 16:01 | GIREPORT ---
[facility] Surgical Services - Endoscopy Department Patient Name: HEYDI CANALES Procedure Date: 02/25/2018 12:39 PM Patient Type: Inpatient Attending MD/ ER Physician: Ambrose Lofton MD Procedure: Colonoscopy Indications: Hematochezia Patient Profile: 77 year old female presents for evaluation of hematochezia. Providers: Ambrose Lofton MD Medicines: Monitored Anesthesia Care Complications: No immediate complications. Estimated blood loss: None. Description of Procedure: After obtaining informed consent, the scope was passed under direct vis ion. Throughout the procedure, the patient's blood pressure, pulse, and oxyg en saturations were monitored continuously. The Colonoscope with irrigatio n channel was introduced through the anus and advanced to the terminal il eum. The colonoscopy was performed without difficulty. The patient tolerated the procedure well. The quality of the bowel preparation was good. The term inal ileum, ileocecal valve, appendiceal orifice, and rectum were photograph ed. Findings: The perianal exam findings include non-thrombosed internal hemorrhoids. Multiple small and large-mouthed diverticula were found in the sigmoid colon and distal descending colon. The terminal ileum appeared normal. Red blood was found in the rectum, in the sigmoid colon, in the descend ing colon, in the transverse colon, in the ascending colon and in the cecum . Estimated Blood Loss: Estimated blood loss: none. Post Op Diagnosis: - Non-thrombosed internal hemorrhoids found on perianal exam. - Diverticulosis in the sigmoid colon. - The examined portion of the ileum was normal and minimal blood was no rolando? Backwash? - No specimens collected. - Etiology? No masses seen. Suspect bleeding is from sigmoid diverticul ar disease. No site of bleeding noted despite very careful examination. Bl ood was seen throughout the whole colon but was more predominant in the lef t colon. Recommendation: - [facility]. - Would consider CT enterography if considering surgical intervention. - Recommend tagged RBC scan vs. repeat IR evaluation if bleeding persis ts - Monitor H/H - Thank you for allowing me to participate in the care of your patient. Attending Participation: I personally performed the entire procedure. Ambrose Lofton MD Ambrose Lofton MD 02/25/2018 4:01:21 PM This report has been signed electronicallyAmbrose Lofton MD Number of Addenda: 0 Note Initiated On: 02/25/2018 12:39 PM Total Procedure Duration Time 0 hours 40 minutes 7 seconds [email or web address]
--- NOTE | 2018-02-26 08:52 | SOAPPROG ---
SOAP Progress Note Assessment/Plan: Assessment/Plan: 77 y F hx TAVR, cardiac stents x 2--most recently in 11/03. GI bleed. Actively bleeding. Plavix and asa continued for recent stent. S/p upper endoscopy and colonoscopy yesterday. Sigmoid diverticulitis found. Bleeding likely diverticular. Still may need sigmoid colectomy pending clinical course. S: Weak. Hard to get up and go to the bathroom. No bloody BM this am. O: Alert Hct rebounded appropriately yesterday after 2 additional units of blood. Down slightly to 23.7 today. ctab, no increased wob rrr abdomen soft, nontender skin pale 02/26/18 08:50 Objective: Vital Signs Temp Pulse Resp BP Pulse Ox 36.9 C 65 13 177/85 H 93 02/26/18 07:51 02/26/18 07:51 02/26/18 07:51 02/26/18 07:51 02/26/18 07:51 Laboratory Results 02/26/18 03:55 02/25/18 03:45 02/25/18 02/26/18 02/27/18 05:59 05:59 05:59 Intake Total 2570 500 Output Total 800 Balance 1770 500 PT 14.3 SEC (12.0-15.0) 02/22/18 14:41 INR 1.09 (0.83-1.16) 02/22/18 14:41 ICD10 Worksheet Patient Problems: Problems Problem Status Onset Elevated troponin Acute GI bleed Acute
[2018-02-26] MEDS: LABETALOL HCL 100 MG TAB PO SCH (09:27)
[2018-02-26] MEDS ORDERED: CHLORTHALIDONE 25 MG TAB PO SCH (10:00)
[2018-02-26] MEDS: ASPIRIN EC 81 MG TAB PO SCH (11:37)
[2018-02-26] MEDS: ALLOPURINOL 300 MG TAB PO SCH (11:37)
[2018-02-26] MEDS: CLOPIDOGREL BISULFATE 75 MG TAB PO SCH (11:37)
[2018-02-26] MEDS: COLCHICINE 0.6 MG CAP/TAB PO SCH (11:37)
[2018-02-26] MEDS: POTASSIUM CL 10 MEQ TAB PO SCH (14:32)
[2018-02-26 16:18] VITALS: BP 152/70
--- NOTE | 2018-02-26 17:25 | PDDCSUM ---
Discharge Summary Discharge Summary: DISCHARGE DIAGNOSES: * GI bleeding requiring multiple transfusions, uncertain etiology but diverticular bleed is suspected * post hemorrhagic anemia * history of coronary disease with stent placed in October 2017, currently taking aspirin and Plavix at home * history of TAVR CONSULTANTS: Dr. Lofton of Gastroenterology PROCEDURES: Esophagogastroduodenoscopy with no evidence of source of bleeding Colonoscopy with no active bleeding, red blood present in bowel but no definitive source; sigmoid and descending diverticuli present with the only potential source of bleeding identified Visual angiography which identified only some hyperemia of sigmoid bowel raising a question of whether there was bleeding there CT angiogram of the abdomen showing an area of sigmoid colon with small volume of extravasation of blood suggesting possibility of sigmoid location of GI bleed HOSPITAL COURSE SUMMARY: This patient came into the hospital with acute active hematochezia. She had significant loss of blood with lowest hemoglobin of 7, received 7 units of packed red blood cells altogether. The patient is actively taking aspirin and Plavix at home because of a history of coronary disease and a stent most recently placed in October of 2017. She did not have angina or heart failure at this time, did not have abdominal pain or vomiting. A CT scan of the abdomen showed an area of likely extravasation in the sigmoid bowel. Visceral angiogram showed only some sigmoid hyperemia but no extravasation or active bleeding. Subsequently a colonoscopy showed diverticula and the presence of red blood but no active bleeding and no other lesions. A specific diverticulum or other site of bleeding could not be identified. Upper endoscopy was unremarkable. The patient's Plavix and aspirin initially were held but after a couple days a plastics was resumed and she is now taking Plavix for the last 3 days and not having any bleeding. Her blood count, blood pressure, pulse are all stable. At this point she has eaten a meal, tolerating it well with no symptoms and no sign of recurrent bleeding. Is recommended that she be discharged home with Plavix but without aspirin for the time being. Because she has coronary disease and stent she will follow up in her Cardiology Clinic next week and GI clinic in 10-14 days for review of medications and any signs of bleeding. The patient is given warning signs to watch for any further bleeding and knows to return for any further episodes of bleeding. PENDING TEST RESULTS: None MEDICATION CHANGES: Discontinue aspirin until follow-up with Gastroenterology and Cardiology She will continue Plavix for the time being FOLLOW-UP PLAN: Follow up with Dr. Lofton in 10-14 days Follow up with her topology teacher Dr. Michel Junior so next week She is aware of the need to watch carefully for any signs of bleeding such as noticed blood, abdominal pain, lightheadedness dizziness shortness of breath angina etc, and seek emergent medical attention in the case of the symptoms Greater than 35 minutes bedside and care coordination time today
== END 2018-02-26 21:15 | disposition home or self-care (01) | DRG 378 ==
LOC: F2W 10:34 → OBSVTOIN 13:54
PROVIDERS: ADMIT Internal Medicine; ATTEND Internal Medicine
PROC: 30233N1 Transfusion of Nonautologous Red Blood Cells into Peripheral Vein, Percutaneous Approach (ICD-10-PCS; 2018-02-22)
PROC: 0DJD8ZZ Inspection of Lower Intestinal Tract, Via Natural or Artificial Opening Endoscopic (ICD-10-PCS; principal; 2018-02-25 14:00)
PROC: 0DJ08ZZ Inspection of Upper Intestinal Tract, Via Natural or Artificial Opening Endoscopic (ICD-10-PCS; principal; 2018-02-25 14:00)
DX: K92.2 Gastrointestinal hemorrhage, unspecified (principal); D62 Acute posthemorrhagic anemia; K57.30 Diverticulosis of large intestine without perforation or abscess without bleeding; K64.8 Other hemorrhoids; E86.9 Volume depletion, unspecified; I25.10 Atherosclerotic heart disease of native coronary artery without angina pectoris; I10 Essential (primary) hypertension; K21.9 Gastro-esophageal reflux disease without esophagitis; M10.9 Gout, unspecified; Z95.5 Presence of coronary angioplasty implant and graft; Z95.3 Presence of xenogenic heart valve; Z79.82 Long term (current) use of aspirin; Z96.643 Presence of artificial hip joint, bilateral
CPT/HCPCS: 97116-GP; 97161-GP; 97165-GO; 97535-GO; C1760; C1769; C1894; J0171; J1200; J1642; J1644; J2250; J2310; J2704; J3010; P9016; Q9967

== ENCOUNTER 2018-08-10 15:49 | Inpatient (IN) | payer OTHER | END 2018-08-13 16:35 | disposition home or self-care (01) | LOC: F2W 08-12 14:09 → F2N 20:52 ==